=== PATIENT | female | born 1980 ===

== ENCOUNTER 2022-05-25 06:37 | Inpatient (IN) | payer BC ==
[~2022-05-25 06:37] MED LIST: Acetaminophen 500 MG Tab PO ONE; Celecoxib 200 MG Cap PO SCH; Scopolamine 1.5 MG Transdermal Patch TOP SCH
[2022-05-25] MEDS ORDERED: cefOXitin 2 GM Vial ONE (07:16)
[2022-05-25] MEDS ORDERED: Dextrose 5%-Lactated Ringers 1,000 ML IV SCH ×3 (07:30→13:30)
[2022-05-25] MEDS ORDERED: Neostigmine Methylsulfate 1 MG/ML 5 ML Syringe ONE (07:44)
[2022-05-25] MEDS ORDERED: Dexamethasone 4 MG/ML SDV ONE (07:44)
[2022-05-25] MEDS ORDERED: fentaNYL 250 MCG/5 ML SDV ONE ×3 (07:44→10:21)
[2022-05-25] MEDS ORDERED: Glycopyrrolate 0.2 MG/ML 5 ML MDV ONE (07:44)
[2022-05-25] MEDS ORDERED: Rocuronium 50 MG/5 ML Vial ONE ×4 (07:44→09:59)
[2022-05-25] MEDS ORDERED: Ondansetron 4 MG/2 ML SDV ONE (07:44)
[2022-05-25] MEDS ORDERED: Propofol 200 MG/20 ML SDV ONE (07:44)
[2022-05-25 07:49] LABS: ESTIMATED GFR 95 mL/min (>60)
[2022-05-25 07:52] LABS: HEMOGLOBIN A1C 9.3 % (4.5-6.2)
[2022-05-25] MEDS ORDERED: cefOXitin 2 GM in Sodium Chloride 0.9% 50 ML IV ONE (08:30)
[2022-05-25] MEDS ORDERED: Ketamine 18 MG in Sodium Chloride 0.9% 19.82 ML IV SCH (08:30)
[2022-05-25] MEDS ORDERED: Ketamine 500 MG/5 ML MDV IV SCH (08:30)
[2022-05-25] MEDS ORDERED: Labetalol 20 MG/4 ML Syringe ONE (09:55)
[2022-05-25] MEDS ORDERED: Propofol 1,000 MG/100 ML SDV ONE ×3 (10:00)
[2022-05-25] MEDS ORDERED: hydrALAZINE 20 MG/ML SDV ONE (10:24)
[2022-05-25] MEDS ORDERED: Sugammadex Sodium 200 MG/2 ML VIAL ONE (11:24)
[2022-05-25] MEDS ORDERED: 50% Dextrose in Water 50 ML Syringe IVPUSH PRN ×2 (11:56→14:00)
[2022-05-25] MEDS ORDERED: Glucagon,Human Recombinant 1 MG Vial IM PRN ×2 (11:56→14:00)
[2022-05-25] MEDS ORDERED: Insulin Lispro 100 Unit/ML 3 ML KwikPen SUBCUT ONE (12:00)
[2022-05-25] MEDS ORDERED: Cyclobenzaprine 10 MG Tab PO PRN (13:15)
[2022-05-25] MEDS ORDERED: Lactated Ringers 1,000 ML IV SCH (13:30)
[2022-05-25] MEDS ORDERED: Heparin Sodium 5,000 Units/ML Vial SUBCUT SCH (14:00)
[2022-05-25] MEDS ORDERED: traMADol 50 MG Tab PO PRN (14:00)
[2022-05-25] MEDS ORDERED: Acetaminophen 500 MG Tab PO PRN (14:00)
[2022-05-25] MEDS ORDERED: Ondansetron 4 MG/2 ML SDV IVPUSH PRN (14:00)
[2022-05-25] MEDS ORDERED: HYDROmorphone 0.5 MG/0.5 ML Syringe IVPUSH PRN (14:00)
[2022-05-25] MEDS ORDERED: hydrOXYzine HCL 100 MG/2 ML SDV IM PRN (14:00)
[2022-05-25] MEDS ORDERED: diphenhydrAMINE 50 MG/ML SDV IVPUSH PRN (14:00)
[2022-05-25] MEDS ORDERED: Metoclopramide 10 MG/2 ML SDV IVPUSH PRN (14:00)
[2022-05-25] MEDS ORDERED: Labetalol 20 MG/4 ML Syringe IVPUSH PRN (14:00)
[2022-05-25] MEDS ORDERED: HYDROmorphone 1 MG/ML Syringe IV PRN (14:00)
[2022-05-25] MEDS: cefOXitin 2 GM in Sodium Chloride 0.9% 50 ML IV SCH ×2 (15:38→22:13)
[2022-05-25] MEDS: MVI, Adult with Vitamin K 10 ML, Thiamine 200 MG, Zinc/Copper/Manganese/Selenium 1 ML i... IV SCH ×4 (15:38)
[2022-05-25] MEDS: Acetaminophen 500 MG Tab PO SCH ×2 (15:38→22:12)
[2022-05-25] MEDS ORDERED: Pantoprazole 40 MG Vial IVPUSH SCH (16:00)
[2022-05-25] MEDS: Insulin Lispro 100 Unit/ML 3 ML KwikPen SUBCUT SCH ×2 (17:10→22:11)
[2022-05-25] MEDS: Heparin Sodium 5,000 Units/ML Vial SUBCUT SCH (17:11)
[2022-05-25] MEDS: oxyCODONE 5 MG Tab PO PRN ×2 (17:56→23:53)
[2022-05-26] MEDS ORDERED: Iopamidol 612 MG/ML 50 ML SDV PO ONE (03:41)
[2022-05-26] MEDS: cefOXitin 2 GM in Sodium Chloride 0.9% 50 ML IV SCH ×4 (04:12→22:07)
[2022-05-26] MEDS: Insulin Lispro 100 Unit/ML 3 ML KwikPen SUBCUT SCH ×4 (04:18→22:09)
[2022-05-26] MEDS: oxyCODONE 5 MG Tab PO PRN ×3 (06:10→20:44)
[2022-05-26] MEDS: Heparin Sodium 5,000 Units/ML Vial SUBCUT SCH ×2 (06:11→18:02)
[2022-05-26] MEDS: Acetaminophen 500 MG Tab PO SCH ×3 (07:32→22:08)
[2022-05-26] MEDS ORDERED: Ondansetron 4 MG Tab.DIS PO PRN (07:53)
[2022-05-26] MEDS ORDERED: hydrOXYzine HCl 25 MG Tab PO PRN (07:56)
[2022-05-26] MEDS: Lactated Ringers 1,000 ML IV SCH (08:21)
[2022-05-26] MEDS: Propranolol 80 MG Cap.ER PO SCH ×2 (08:22→08:42)
[2022-05-26] MEDS: SCOPOLAMINE PATCH CHECK TOP SCH (08:22)
[2022-05-26] MEDS: Celecoxib 200 MG Cap PO SCH ×2 (08:23→20:45)
[2022-05-26] MEDS ORDERED: Pantoprazole 40 MG Tab.CR PO SCH (16:00)
[2022-05-26] MEDS: MVI, Adult with Vitamin K 10 ML, Thiamine 200 MG, Zinc/Copper/Manganese/Selenium 1 ML i... IV SCH ×4 (16:17)
[2022-05-27] MEDS: Lactated Ringers 1,000 ML IV SCH (03:40)
[2022-05-27] MEDS: Insulin Lispro 100 Unit/ML 3 ML KwikPen SUBCUT SCH (04:32)
[2022-05-27] MEDS: Heparin Sodium 5,000 Units/ML Vial SUBCUT SCH (05:41)
[2022-05-27] MEDS: oxyCODONE 5 MG Tab PO PRN (05:45)
[2022-05-27] MEDS: Acetaminophen 500 MG Tab PO SCH (07:26)
[2022-05-27] MEDS ORDERED: Magnesium Hydroxide 400 MG/5 ML Susp 30 ML Cup PO ONE (09:00)
[2022-05-27] MEDS ORDERED: Cyanocobalamin (Vitamin B12) 1,000 MCG/ML SDV IM ONE (09:00)
[2022-05-27] MEDS: Celecoxib 200 MG Cap PO SCH (09:21)
[2022-05-27] MEDS: SCOPOLAMINE PATCH CHECK TOP SCH (10:57)
[2022-05-27] MEDS: Propranolol 80 MG Cap.ER PO SCH (10:59)
== END 2022-05-27 09:45 | disposition home or self-care (01) | DRG 403 ==
LOC: JP.SDSSCHI 06:37 → JP.MS 11:45
PROVIDERS: ADMIT Surgery; ATTEND Surgery
PROC: 0D194ZB Bypass Duodenum to Ileum, Percutaneous Endoscopic Approach (ICD-10-PCS; principal; 2022-05-25)
PROC: 0FB24ZX Excision of Left Lobe Liver, Percutaneous Endoscopic Approach, Diagnostic (ICD-10-PCS; 2022-05-25)
PROC: 0BQT4ZZ Repair Diaphragm, Percutaneous Endoscopic Approach (ICD-10-PCS; 2022-05-25)
DX: E66.01 Morbid (severe) obesity due to excess calories (principal); R16.0 Hepatomegaly, not elsewhere classified; K44.9 Diaphragmatic hernia without obstruction or gangrene; D50.9 Iron deficiency anemia, unspecified; E11.65 Type 2 diabetes mellitus with hyperglycemia; I10 Essential (primary) hypertension; E78.5 Hyperlipidemia, unspecified; Z90.49 Acquired absence of other specified parts of digestive tract; Z91.018 Allergy to other foods; Z68.42 Body mass index [BMI] 45.0-49.9, adult
CPT/HCPCS: 36415; 74240; 74240-26; 80053; 82947; 83036; 83735; 84100; 85027; 86850; 86900; 86901; 88307; 88313; A9270-GY; C9113; J0171; J0360; J0694; J1100; J1644; J1815; J1815-GY; J2405; J2704; J2710; J2795; J3010; J3411; J3420; J3490; J7120; J7121; Q9967